=== PATIENT | male | born 1935 | race Caucasian/White ===

== ENCOUNTER → 2024-01-19 09:43 | Outpatient (REF) | payer OTHER, SELFPAY | LOC: RAD 09:43 | PROVIDERS: ATTENDING PHYSICIAN Internal Medicine Gastroenterology; FAMILY PHYSICIAN Family Medicine | DX: R07.89 Other chest pain (principal); R13.19 Other dysphagia | CPT/HCPCS: 74221 ==

== ENCOUNTER → 2024-11-02 11:11 | Outpatient (REF) | payer MEDICARE, SELFPAY | LOC: HWRAD 11:11 | PROVIDERS: ATTENDING PHYSICIAN Family Medicine | DX: R05.3 Chronic cough (principal); Z87.891 Personal history of nicotine dependence | CPT/HCPCS: 71046 ==

== ENCOUNTER → 2024-11-08 16:22 | Outpatient (REF) | payer MEDICARE, SELFPAY | LOC: RAD 16:22 | PROVIDERS: ATTENDING PHYSICIAN Family Medicine | DX: R05.3 Chronic cough (principal); Z87.891 Personal history of nicotine dependence | CPT/HCPCS: 71260; Q9967 ==

== ENCOUNTER → 2025-05-08 15:16 | Outpatient (REF) | payer MEDICARE, SELFPAY | LOC: RAD 15:16 | PROVIDERS: ATTENDING PHYSICIAN Family Medicine | DX: J44.9 Chronic obstructive pulmonary disease, unspecified (principal); C61 Malignant neoplasm of prostate; J18.0 Bronchopneumonia, unspecified organism; C91.10 Chronic lymphocytic leukemia of B-cell type not having achieved remission | CPT/HCPCS: 71046 ==

== ENCOUNTER 2025-05-26 07:57 | Day surgery (SDC) | payer MEDICARE, SELFPAY ==
[2025-05-26] VITALS (24 sets, daily range): BP systolic 159–213; BP diastolic 58–97; BMI 31.4
[2025-05-26 08:26] LABS: Hematocrit 36.7 % (39.0-52.0); Hemoglobin 12.2 g/dL (13.0-18.0); Mean Corp Hgb Conc. 33.2 g/dL (33.0-37.0); Mean Corpuscular Volume 97.3 fL (80.0-94.0); Platelet Count 111 10^3/uL (130-400); Red Cell Dist. Width 14.6 % (11.5-14.5)
[2025-05-26 08:29] LABS: Blood Urea Nitrogen 26 mg/dl (9-20); Calcium 9.3 mg/dl (8.4-10.2); Carbon Dioxide 26 mmol/L (22-30); Chloride 108 mmol/L (98-107); Glucose 106 mg/dl (70-99); Potassium 4.3 mmol/L (3.5-5.1); Sodium 142 mmol/L (135-145); eGFR 52.51
--- NOTE | 2025-05-26 12:19 | ITS.CL.PACE ---
[employer] - Pacemaker Implant
Pacemaker Implant
Procedure Report:
Date of Procedure: May 26, 2025
Patient : 1935
Procedure: Pacemaker Implantation.
Indication: Intermittent AV block
Implants:
Pulse Generator: Medtronic; Model# W1 DR 01]; SN: [id number]
RA Lead: Medtronic; Model# 4574; SN: [id number]
RV Lead: Medtronic; Model# 4074; SN: [id number]
Technique: A time out was performed. The procedure site was identified. The patient was anesthetized by the anesthesia service. Preoperative sedation was administered. The patient was prepped and draped in the usual fashion. Local anesthetic was
applied to the left prepectoral subcutaneous tissue. A 3 inch incision was made 2.5 inches below the left clavicle. A subcutaneous pocket was created with blunt and sharp dissection and hemostasis controlled with Bovie cautery. The left axillary
vein was accessed within the pocket without difficulty. Hemostasis was excellent. The leads were introduced with 7 Fr hemostatic peel away introducer sheaths. The ventricular lead was placed at the right ventricular apex. The atrial lead was placed
in the right atrial appendage. 10 volt pacing did not capture the diaphragm. The leads were secured to the pectoralis muscle and fascia. The leads were appropriately attached to the device. The pocket was irrigated with antibiotic solution. The
device and leads were placed in the pocket. The incision was closed in three layers with absorbable suture. The estimated blood loss was minimal. There were no complications.��
Lead Analysis:
RA lead: P: 2.8 mV; Threshold: 0.4 V @ 0.5��ms; Impedance: 870 ohms.
RV lead: R: 8.0 mV; Threshold: 0.4 V @ 0.5��ms; Impedance: 890 ohms.
Final Programming: AAIR�DDDR 60-130 bpm
�
Conclusion: Uncomplicated Medtronic pacemaker implant.
Recommendation: Routine post pacemaker care.
[2025-05-26] MEDS: NORVASC 5 MG PO (14:50)
--- NOTE | 2025-05-26 16:09 | CM ---
Chart reviewed. Patient is independent of ADLS, lives with his in a 2 STH, 1st level set up, 1 JESUS, 0 DME. Plan is for the patient to return home. CM to follow
[2025-05-26] MEDS: ANCEF 5 IV (17:34)
[2025-05-26] MEDS: DIOVAN 160 MG PO ×2 (17:39→20:35)
--- NOTE | 2025-05-26 17:43 | PTCARENOTE ---
Pt received post procedure with left chest aqucell dry and intact. Left arm immobilizer intact. Denies any pain or discomfort. BP's elevated, medicated with Norvasc as ordered. Assisted oob to the chair for dinner, gait steady.
[2025-05-26] MEDS: APRESOLINE 5 MG IV (23:56)
[2025-05-27] MEDS: ANCEF 5 IV (01:41)
[2025-05-27 01:44] VITALS: BP 169/77
--- NOTE | 2025-05-27 02:24 | PTCARENOTE ---
Pt with BP 190s/80s, V paced o monitor. Pt denies any pain or discomfort. CVPA made aware. Extra dose of Valsartan and later Iv Hydralazine given. BP improved to 169/77 with HR 83
Pressure dressing applied on new pacer side for hematoma and minimal bleeding
[2025-05-27 03:56] VITALS: BP 160/92
[2025-05-27 04:48] LABS: Hematocrit 35.6 % (39.0-52.0); Hemoglobin 12.2 g/dL (13.0-18.0); Mean Corp Hgb Conc. 34.3 g/dL (33.0-37.0); Mean Corpuscular Volume 97.5 fL (80.0-94.0); Platelet Count 129 10^3/uL (130-400); Red Cell Dist. Width 14.3 % (11.5-14.5)
[2025-05-27 05:06] LABS: Blood Urea Nitrogen 26 mg/dl (9-20); Calcium 9.0 mg/dl (8.4-10.2); Carbon Dioxide 21 mmol/L (22-30); Chloride 108 mmol/L (98-107); Estimated Creatinine Clearance 49 ml/min; Glucose 131 mg/dl (70-99); Potassium 4.5 mmol/L (3.5-5.1); Sodium 139 mmol/L (135-145); eGFR > 60.00
[2025-05-27 08:06] VITALS: BP 162/70
[2025-05-27 08:21] VITALS: BMI 30.8
[2025-05-27] MEDS: ZYLOPRIM 300 MG PO (08:45)
[2025-05-27] MEDS: LIPITOR 20 MG PO (08:45)
[2025-05-27] MEDS: NORVASC 5 MG PO (08:45)
[2025-05-27] MEDS: DIOVAN 160 MG PO (08:45)
--- NOTE | 2025-05-27 08:57 | W.PN.CARDCBS ---
Addendum entered and electronically signed by Chauncey Steele DO 05/27/25 09:42:
I saw and examined the patient.
The Telephone Messenger's note was reviewed and I agree with the note.
Comment:
Patient is status post dual-chamber pacemaker with Dr. Wheeler on 05/26/2025
Chest x-ray shows stable lead position with no evidence of pneumothorax
EKG sinus rhythm with ventricular pacing (a sensed, V paced); telemetry similar a sensed V paced
Blood pressure mildly elevated will increase Norvasc to 5 mg twice daily with planned reassessment at home and at incision check
Continue current goal-directed therapy
Stable for DC from CV standpoint
Original Note:
Today's Communication / Plan
-
Status post pacemaker
Increase Norvasc to 5 mg twice daily. Follow blood pressures at home
Ambulate
DC to home today
Impression / Plan
-
Primary Radio Equipment Installer: Dr. Sepulveda
PCP: Dr. Palumbo
Assessment:
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
Hypertension
Hyperlipidemia
CLL
Prostate Cancer
Prediabetes
Former tobacco abuse
Echo 03/16/2023: EF 60%, MAC, mild MR, aortic sclerosis, normal right heart with PAP 36 mmHg, rare second-degree AV block seen
Plan:
-s/p Medtronic PPM placement 05/26/25
-in asensed vpaced rhythm overnight on review of tele
-CXR without PTX
-hgb 12.2
-BPs elevated overnight. currently on valsartan 160mg BID and norvasc 5mg daily. required IV hydralazine PRN x2 overnight. will increase norvasc dose to 5mg BID. patient advised to follow BP trends at home.
-will arrange BP check at time of wound check appointment next week
-discussed activity restrictions post PPM
-ambulate
-plan for DC to home today
[id number]
Progress Note - Radio Equipment Installer
Subjective
Date of Service: May 27, 2025
Reports blood pressure elevated overnight, however feeling fine.
Objective
Labs:
05/27/25 03:57
05/27/25 03:57
Labs
Hgb 12.2 g/dL (13.0-18.0) L 05/27/25 03:57
Hct 35.6 % (39.0-52.0) L 05/27/25 03:57
Plt Count 129 10^3/uL (130-400) L 05/27/25 03:57
Sodium 139 mmol/L (135-145) 05/27/25 03:57
Potassium 4.5 mmol/L (3.5-5.1) 05/27/25 03:57
BUN 26 mg/dl (9-20) H 05/27/25 03:57
Creatinine 1.1 mg/dL (0.7-1.3) 05/27/25 03:57
Glucose 131 mg/dl (70-99) H 05/27/25 03:57
Vital Signs and I&O:
Vital Signs
Temp Pulse Resp BP Pulse Ox
97.7 F 97 18 162/70 94
05/27/25 08:02 05/27/25 08:45 05/27/25 08:02 05/27/25 08:45 05/27/25 08:02
Vital Signs
Temp Pulse Resp BP Pulse Ox
97.7 F 97 18 162/70 94
05/27/25 08:02 05/27/25 08:45 05/27/25 08:02 05/27/25 08:45 05/27/25 08:02
Physical Exam
Physical Exam
GEN: No distress, awake, alert, oriented x3. Immobilizer in place
HEENT: supple, anicteric, mmm, EOMI
LUNGS: CTA bilaterally, no wheezes/rales
CV: Reg, S1/S2, no murmur
ABD: soft, BS+, NT/ND
EXT: No clubbing, cyanosis.trace edema of bilateral lower extremity
NEURO: Gross non-focal
SKIN: Warm, pink, dry. No rash. Left chest Aquacel dressing with mild amount of dried blood noted.
--- NOTE | 2025-05-27 09:07 | W.DS.TRANS ---
DC Summary - Warehouse Analyst
-
Discharge Instructions:
Discharge Diagnosis/Procedures Pacemaker implant
Diet Low Cholesterol,Low Sodium
Driving Restrictions No driving for 1 week
Bathing Restrictions OK to Shower
Instructions:
Stand-Alone Forms: DC Inst - Implanted Device
Changes to Home Medications: Yes
Discharge Medications:
DC Medications w/original date entered in [employer]
allopurinol 300 mg tablet 300 mg PO DAILY 08/27/23
atorvastatin 20 mg tablet 20 mg PO DAILY 08/27/23
garlic 1,000 mg capsule 1,000 mg PO DAILY 08/27/23
tnqbezjd-kg-sdxfn 300 mcg-K 60 mcg-lycop 600 mcg-lutein 300 mcg tablet (Centrum Silver Men) 1 tab PO DAILY 08/27/23
vitamin B complex 1 tab PO DAILY 08/27/23
zinc 50 mg tablet 50 mg PO DAILY 08/27/23
pbxeuvplR56-ueaw oil-omega 3-vit E 50 mg-550 mg-300 mg-30 unit capsule 1 cap PO DAILY 05/26/25
valsartan 160 mg tablet 160 mg PO BID 05/26/25
amlodipine 5 mg tablet (Norvasc) 5 mg PO BID #180 tabs 05/27/25
Home Medication Changes
norvasc is new
Pending Results: No
--- NOTE | 2025-05-27 09:12 | W.DS.TRANS ---
DC Summary - Trolley Operator
-
Discharge Instructions:
Discharge Diagnosis/Procedures Pacemaker implant
Diet Low Cholesterol,Low Sodium
Driving Restrictions No driving for 1 week
Bathing Restrictions OK to Shower
Instructions:
Stand-Alone Forms: DC Inst - Implanted Device
Changes to Home Medications: Yes
Discharge Medications:
DC Medications w/original date entered in [employer]
allopurinol 300 mg tablet 300 mg PO DAILY 08/27/23
atorvastatin 20 mg tablet 20 mg PO DAILY 08/27/23
garlic 1,000 mg capsule 1,000 mg PO DAILY 08/27/23
cmksiulv-nf-uokua 300 mcg-K 60 mcg-lycop 600 mcg-lutein 300 mcg tablet (Centrum Silver Men) 1 tab PO DAILY 08/27/23
vitamin B complex 1 tab PO DAILY 08/27/23
zinc 50 mg tablet 50 mg PO DAILY 08/27/23
[id number]-owdw oil-omega 3-vit E 50 mg-550 mg-300 mg-30 unit capsule 1 cap PO DAILY 05/26/25
valsartan 160 mg tablet 160 mg PO BID 05/26/25
amlodipine 5 mg tablet (Norvasc) 5 mg PO BID #180 tabs 05/27/25
Home Medication Changes
norvasc is new
Pending Results: No
--- NOTE | 2025-05-27 11:46 | PTCARENOTE ---
Pt's binder removed this AM. VSS. Discharged to main lobby, accompanied by and step daughter. Education regarding pacermaker and medications provided
== END 2025-05-27 11:49 | disposition home or self-care (01) ==
LOC: CATH 07:57
PROVIDERS: Nurse Practitioner; ATTENDING PHYSICIAN Internal Medicine Cardiovascular Disease; FAMILY PHYSICIAN Family Medicine; OTHER PHYSICIAN Internal Medicine Cardiovascular Disease
DX: I44.1 Atrioventricular block, second degree (principal); C61 Malignant neoplasm of prostate; C91.10 Chronic lymphocytic leukemia of B-cell type not having achieved remission; E78.5 Hyperlipidemia, unspecified; I08.0 Rheumatic disorders of both mitral and aortic valves; I10 Essential (primary) hypertension; I70.0 Atherosclerosis of aorta; R73.03 Prediabetes; Z87.891 Personal history of nicotine dependence; Z79.899 Other long term (current) drug therapy
CPT/HCPCS: 33208; 71045; 80048; 85027; 93005; C1785; C1898; Q9967

== ENCOUNTER 2025-08-04 18:28 | Observation (INO) | payer MEDICARE, SELFPAY ==
[2025-08-04] VITALS (9 sets, daily range): BP systolic 131–156; BP diastolic 61–110; BMI 31.2
[2025-08-04 12:25] LABS: ALT (SGPT) 23 U/L (0-50); AST (SGOT) 26 U/L (17-59); Albumin 4.9 g/dl (3.5-5.0); Alkaline Phosphatase 96 U/L (38-126); Blood Urea Nitrogen 30 mg/dl (9-20); Calcium 9.4 mg/dl (8.4-10.2); Carbon Dioxide 22 mmol/L (22-30); Chloride 107 mmol/L (98-107); Glucose 114 mg/dl (70-99); Potassium 4.7 mmol/L (3.5-5.1); Sodium 139 mmol/L (135-145); Total Protein 7.3 g/dl (6.3-8.2); eGFR 48.04
[2025-08-04 12:37] LABS: Troponin I 0.026 ng/ml
[2025-08-04 12:45] LABS: Hematocrit 36.3 % (39.0-52.0); Hemoglobin 12.1 g/dL (13.0-18.0); Mean Corp Hgb Conc. 33.3 g/dL (33.0-37.0); Mean Corpuscular Volume 96.0 fL (80.0-94.0); Platelet Count 132 10^3/uL (130-400); Red Cell Dist. Width 14.4 % (11.5-14.5)
--- NOTE | 2025-08-04 13:43 | ED.GENMED ---
History of Present Illness
General
Chief Complaint: Numbness
Time Seen by Provider: 08/04/25 13:29
History of Present Illness
History of Present Illness:
Patient is a 89-year-old male with history of CLL, hypertension, hyperlipidemia presented to the emergency department left upper extremity numbness tingling. Patient states that for the past few days he is not having left upper extremity tingling
only when he sleeps on that side. He wakes up takes his arm out and it goes away. However this morning the tingling lasted for 1 hour. He did not lay on his right side and then still developed the same tingling to the entire left upper extremity.
He denies any weakness chest pain shortness of breath or back pain. He he did call his fiberline supervisor this morning and they interrogated his pacemaker which was unremarkable. He then came to the emergency department given that the pain occurred
again not while sleeping. No known history of degenerative disc disease. He states it follows his entire arm. No history of transient word finding difficulties dysarthria facial droop. At this time patient has no complaints.
Phy Exam
Physical Exam
Physical Exam:
GENERAL: in no acute distress
HEENT: normocephalic, extraocular movements intact, moist oral mucosa
NECK: normal inspection, no cervical spine tenderness, negative Spurling maneuver
RESPIRATORY: no respiratory distress, clear to auscultation bilaterally
CARDIOVASCULAR: regular rate and rhythm, 2+ radial pulses bilaterally
ABDOMEN/: soft, non-distended, non-tender to palpation, no rebound or guarding
EXTREMITIES: non-tender, no edema/swelling
NEUROLOGIC: alert and oriented x 3, cranial nerves II-XII intact, right upper extremity strength 5/5, left upper extremity strength 5/5, right lower extremity strength 5/5, left lower extremity strength 5/5, normal sensation to light touch, normal
bzcaej-yd-zaud and vcbt-ny-izlt, gait not tested formally
SKIN: warm
Course
Orders/Labs/Results
Orders:
Orders
08/04/25 11:58
Electrocardiogram (*1) Urgent
Reason for Study: Other
Other Reason for Exam: left arm numbness
EKG- Treatment ONCE
08/04/25 12:00
Complete Blood Count/With Diff Urgent
Comprehensive Metabolic Panel Urgent
Manual Differential Urgent
Troponin I Urgent
08/04/25 13:42
CT Head & Neck Angio W/wo IV Urgent
Comment:
Reason For Exam: LUE parathesias
Abnormal Lab Results
08/04/25
12:00
WBC 55.7 H* 10^3/uL
(4.8-10.8)
RBC 3.78 L 10^6/uL
(4.70-6.10)
Hgb 12.1 L g/dL
(13.0-18.0)
Hct 36.3 L %
(39.0-52.0)
MCV 96.0 H fL
(80.0-94.0)
MCH 32.0 H pg
(27.0-31.0)
Segmented Neutrophils 7 L %
(42-75)
Lymphocytes (Manual) 90 H %
(20-51)
Monocytes (Manual) 1 L %
(2-9)
BUN 30 H mg/dl
(9-20)
Creatinine 1.4 H mg/dL
(0.7-1.3)
Glucose 114 H mg/dl
(70-99)
08/04/25 12:00
08/04/25 12:00
Vital Signs
Initial and Last Documented VS:
Initial Vital Signs
Temp Pulse Resp BP Pulse Ox
97.8 F 77 19 155/85 99
08/04/25 11:51 08/04/25 11:51 08/04/25 11:51 08/04/25 11:51 08/04/25 11:51
Last Documented Vital Signs
Temp Pulse Resp BP Pulse Ox
97.8 F 69 12 131/110 96
08/04/25 11:51 08/04/25 13:30 08/04/25 13:30 08/04/25 13:15 08/04/25 13:46
MDM/Problems Addressed
Differential Diagnosis Includes:
Patient is a 89-year-old male with history of CLL, hypertension, hyperlipidemia presenting to the emergency department transient left upper extremity numbness tingling. On arrival patient was hypertensive though during my evaluation it did
normalize. Exam shows no neurologic deficits and negative Spurling maneuver. Differential is broad but consists of TIA versus cervical radicular versus atypical ACS. EKG obtained prior to evaluation per my interpretation is a paced rhythm. Blood
work is notable for creatinine of 1.4 with a baseline of 1. Otherwise blood work is similar to prior. Given patient does have risk factors with the tingling not in a radicular distribution patient does need a stroke workup. Will obtain CT head
and angio. He will need admission for further evaluation. Will also obtain CT C-spine to evaluate for any degenerative disc disease.
*Pulse Oximetry
SaO2: 96
Patient hypoxic: no
*Critical Care Note
Total Time (30-74mins, 75-104mins- exclusive of procedures): Not Applicable
Update Note
Update Note:
CT scan with no acute abnormality. 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 Discussed [facility] hospitalist who accepted patient to their service.
ED Attending Note
-
Portions of this chart may have been created with voice recognition software.� Occasional wrong word or��sound alike� substitutions may have occurred due to the inherent limitations of voice recognition software.
Discharge Plan
Departure
Patient Disposition: Admit
Date of Disposition: 08/04/25
Time of Disposition: 16:32
Presentation/result/management discussed w/ accepting MD/DO: Hospitalist
Discharge Problem:
Numbness and tingling of left upper extremity
Prescriptions:
No Action
atorvastatin 20 mg Tablet
20 mg PO DAILY
garlic 1,000 mg Capsule
1,000 mg PO DAILY
vitamin B complex Tablet
1 tab PO DAILY
allopurinol 300 mg Tablet
300 mg PO DAILY
valsartan 160 mg Tablet
160 mg PO BID
Theragen Tablet
1 tab PO DAILY
coQ10 (ubiquinol) 100 mg Capsule
100 mg PO DAILY
amlodipine [Norvasc] 5 mg tablet
5 mg PO BID
Referrals:
Jaycob Palumbo MD [Family Provider, Family Practice]
Interventions
Interventions:
*General Assessment Last Done: 08/04/25 11:54
*Neglect/Abuse Screening Last Done: 08/04/25 11:54
*ED COVID-19 Vaccine History Last Done: 08/04/25 11:54
*ED Influenza Vaccine History Last Done: 08/04/25 11:54
[facility] Fall Risk Assessment Tool Last Done: 08/04/25 13:33
*Risk Screen - Suicide (C-SSRS) Last Done: 08/04/25 11:54
ED- Neurological Assessment Last Done: 08/04/25 13:42
Discharge Date and Time
Print Language: LUX[place]BOURGISH
[2025-08-04 13:47] LABS: Absolute Neutrophils -Man Diff 3.8 10^3/uL (1.4-6.5); Normal RBC Morphology Yes; Platelets Checked Yes; Total Cells Counted 100
[2025-08-04 13:48] LABS: Smudge Cells 3+
--- NOTE | 2025-08-04 17:20 | HPS.HSE ---
Family Physician
-
Family Physician: Jaycob Palumbo
Chief Complaint
-
left upper extremity numbness tingling.
History of Present Illness
89M seen at ER for left upper extremity numbness tingling.
PMHX:CLL, hypertension, hyperlipidemia
- acute onset of Cong numbness tingling for the past few days he is not having left upper extremity tingling only when he sleeps on that side.
- usually wakes up takes his arm out and it goes away.
- However this morning the tingling lasted for 1 hour without laying on the right side and then still developed the same tingling to the entire left upper extremity.
- denies any weakness chest pain shortness of breath or back pain.
- called his dermatology procedural physician this morning and they interrogated his pacemaker which was unremarkable.
- then came to the emergency department given that the pain occurred again not while sleeping.
- No known history of degenerative disc disease.
- No history of transient word finding difficulties dysarthria facial droop.
Currently no complaints.
Medical History
Past Medical History
Past Medical History: Reports Other (pre-DM, CLL, essential HTN, HLD, prostate CA)
Past Surgical History: Reports Other
Social History
Tobacco: Former Smoker
Alcohol: Occasional
Family History
Family History: Not pertinent
Allergies / Home Medications
Allergies reflects when Allergies were last updated in [employer].
Home Medications with original date entered in [employer]
Allergy/Medication List:
Allergies
Allergy/AdvReac Type Severity Reaction Status Date / Time
No Known Allergies Allergy Unverified 08/27/23 20:40
Home Medications
allopurinol 300 mg tablet 300 mg PO DAILY 08/27/23
atorvastatin 20 mg tablet 20 mg PO DAILY 08/27/23
fosinopril 10 mg tablet 10 mg PO BID 08/27/23
garlic 1,000 mg capsule 1,000 mg PO DAILY 08/27/23
rbnmauur-fa-bcoyt 300 mcg-K 60 mcg-lycop 600 mcg-lutein 300 mcg tablet (Centrnandini Silver Men) 1 tab PO DAILY 08/27/23
vitamin B complex 1 tab PO DAILY 08/27/23
vitamin E 268 mg (400 unit) capsule 268 mg PO DAILY 08/27/23
zinc 50 mg tablet 50 mg PO DAILY 08/27/23
Review of Systems
-
Constitutional: Reports No Symptoms
EENT: Reports No Symptoms
Respiratory: Reports No Symptoms
Cardiac: Reports No Symptoms
Abdomen/GI: Reports No Symptoms
: Reports No Symptoms
Musculoskeletal: Reports See HPI
Skin: Reports No Symptoms
Neurological: Reports See HPI and Numbness (intermittent LUE numbness tingling)
Endocrine: Reports No Symptoms
Hematologic/Lymphatic: Reports No Symptoms
Psych: Reports No Symptoms
Physical Exam
Vital Signs
Vital Signs
Temp Pulse Resp BP Pulse Ox
97.8 F 69 12 131/110 96
08/04/25 11:51 08/04/25 13:30 08/04/25 13:30 08/04/25 13:15 08/04/25 13:46
Physical Exam
General: Well Developed, Well Nourished and No Apparent Distress
HEENT: NormoCephalic, Moist mucous membranes and Atraumatic
Respiratory: Clear
Cardiac: S1/S2 and Regular Rhythm; No Murmur or Rub
GI: Soft, Non Tender, Non Distended and Normal Bowel Sounds; No Organomegaly
Rectal: Deferred by Provider
Musculoskeletal: No Clubbing, No Cyanosis and No Edema
Skin: No Rash
Neuro: Nonfocal/grossly intact
Laboratory Results
-
08/04/25 12:00
08/04/25 12:00
Laboratory Results
Total Bilirubin 0.7 mg/dl (0.2-1.3) 08/04/25 12:00
AST 26 U/L (17-59) 08/04/25 12:00
ALT 23 U/L (0-50) 08/04/25 12:00
Alkaline Phosphatase 96 U/L (38-126) 08/04/25 12:00
Troponin I 0.026 ng/ml 08/04/25 12:00
Data Reviewed
-
CT Scan: Report Reviewed by me
Lab Data: Labs Reviewed by me
Old Records: Reviewed
Impression/Plan
-
Vital Signs
Temp Pulse Resp BP Pulse Ox
97.8 F 69 12 131/110 96
08/04/25 11:51 08/04/25 13:30 08/04/25 13:30 08/04/25 13:15 08/04/25 13:46
Selected Entries
08/04/25
11:51 08/04/25
14:00 08/04/25
17:00
Pulse 77
Blood pressure 155/85 142/70 150/75
Labs
05/27/25 08/04/25
03:57 12:00
WBC 66.9 H* 55.7 H*
Hgb 12.2 L 12.1 L
Plt Count 129 L 132
05/27/25 08/04/25
03:57 12:00
BUN 26 H 30 H
Creatinine 1.1 1.4 H
eGFR > 60.00 48.04
Troponin I 0.026
EKG report
- AV dual-paced rhythm
- ABNORMAL ECG
- WHEN COMPARED WITH ECG OF 27-May-2025 04:00,
- VENT. RATE HAS DECREASED by 5 bpm
- Confirmed by JUSTIN MCDONALD MD, LESTER ([id number]) on 08/04/2025 5:31:[address] Head & Neck Angio W/wo IV
- No acute intracranial abnormality.
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
- Moderate stenosis of the short segment of the V4 right vertebral artery.
- Bilateral carotid bifurcation atherosclerosis.
- Stenoses of the bilateral distal common carotid arteries just below the carotid bifurcations (70% stenosis on the right, and 50% stenosis on the left).
- Less than 50% stenosis of the bilateral carotid bulbs, left greater than right.
Last hospitalist admission: 08/28/23 - 08/28/23
PDX:
Resolved chest pain, ruled out acute chest syndrome (ACS), likely related to dyspepsia
Hypertensive urgency, resolved
Chronic Diagnoses:
Chronic lymphocytic leukemia (CLL) with leucocytosis
Bicytopenia with anemia and thrombocytopenia likely related to CLL
Hyperlipidemia
-
ASSESSMENT & PLAN
Pending Rx reconciliation
LUEx subacute transient paraesthesia become persistent without NFND warranted current ER evaluation
Broad DDX: TIA vs. cervical radiculopathy vs. atypical ACS.
- On arrival patient was hypertensive though then normalize.
- no neurologic deficits
- stroke w/u
- start ASA
- c/w FULLER BR[employer] WORKER Statin
- Brain MRI wo contrast
- CT Cx spine
- Neuro consult
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
Moderate stenosis of the short segment of the V4 R Vertebral artery
Bilateral carotid bifurcation atherosclerosis.
Stenoses of the bilateral distal CCA just below the carotid bifurcations (70% stenosis on the right, and 50% stenosis on the left).
Less than 50% stenosis of the bilateral carotid bulbs, left greater than right.
- await Neurologist correlation with UEx subacute transient paraesthesia
HLD
- FULLER BRUSH WORKER statin
Suboptimal control of pHTN
- c/w Valsartan and Amlodipine
Known HX CLL with leucocytosis
DVT Px: SCD
Full code
OBS TLM
--- NOTE | 2025-08-04 20:09 | EDRN ---
attempted to call report- no answer. will try again
[2025-08-04] MEDS: DIOVAN 160 MG PO (21:31)
[2025-08-04] MEDS: NORVASC 5 MG PO (21:31)
[2025-08-04 21:49] LABS: INR 1.05; PT 13.8 Sec (11.4-14.6)
[2025-08-04 21:50] LABS: APTT 30.7 Sec (23.4-35.0)
--- NOTE | 2025-08-04 22:14 | PTCARENOTE ---
Pt arrived to floor via stretcher from the ED. Pt AAOx3, pt independent at baseline, able to walk from stretcher in to room without difficulty. NIH assessed-0 at this time. Pt reported some intermittent numbness/ tingling of UE, denies at this time.
Pt instructed to notify this RN if any symptoms return. HR in the 70's 100% Vpaced on the monitor. POX 96% on RA. lungs clear. + bowel, round obese abd. Pt instructed to call to ambulate to bathroom when needed. Pt reports understanding. palpable
peripheral pulses present. Right AC int capped. Knee high seq now in place. Call espinoza in reach. Will continue to monitor.
[2025-08-05] VITALS (9 sets, daily range): BP systolic 123–165; BP diastolic 50–68; PULSE 70
--- NOTE | 2025-08-05 07:33 | CON.NEURO ---
Addendum entered and electronically signed by Ethan Figueroa MD 08/05/25 13:06:
Given concern for acute infarct within 24 hours of LKW and NIHSS<5 (POINT/CHANCE) and R CCA severe stenosis, loading with clopidogrel 600 mg follwoed by 75 mg to ASA. Duration of DAPT pending MRI and vascular evaluation.
Original Note:
Neuro Assessment/Plan
Assessment
Leoncio Bhagat is a 89 yo M PMH HTN, HLD, pre-diabetes, CLL, AV block s/p PPM, prostate cancer, presenting with acute left arm hemisensory changes. He describes symptoms as severe acute left arm parasthesia and numbness, but intact strength, on
arousal from sleeping. Symptoms lasted about 1 hour then resolved, although were preceded by more minor intermittent sensory changes in the days prior. Neurological exam with persistent mild weakness in left arm (elbow and wrist extension), however
intact sensation. CTAH&N without intracranial high grade vessel occlusion, however high grade (>70%) stenosis of the right common carotid prior to bifurcation.
Differential for presenting symptoms is broad and include transient compressive neuropathy, cervical radiculopathy, or vascular causes. Notably, he reports stuttering symptoms in the days prior with evidence of high grade stenosis in R CCA in a
vascular region potentially attributable to symptoms. While his sensory symptoms have resolved (ie. TIA with ABCD2 score 3), he now has mild persistent weakness in the left arm which is potentially concerning for stroke. Would favor treating
empirically as stroke with ASA/statin pending MRI for further evaluation. Whether evidence of acute stroke on MRI or concerning TIA, it remains concerning that he has symptomatic carotid stenosis, which per NASCET/ECST trials would recommend CEA,
with absolute RR of 16% over 5 years vs medical therapy alone. This should be further discussed with vascular surgery and MRI brain would be useful in further evaluation.
Alternative causes include cervical radiculopathy, although the absence of neck pain, asymmetric reflexes, and no clear dermatomal distribution of sensory symptoms makes this less likely. However, MRI C spine would be helpful to further evaluate.
Plan
- start ASA 325 mg x1, followed by 81 mg daily
- increase atorvastatin 20>80 mg daily
- BP goal normotension
- obtain MRI brain and cervical spine without contrast
- vascular surgery evaluation for concern for symptomatic carotid stenosis and TIA vs stroke
- PT/OT
- obtain Hgb A1c
Consultation
Order
Date of Consultation: 08/05/25
Requesting Provider: Parveen
Reason for Consult: LUE weakness, numbness, parasthesia
Subjective/Objective
Subjective Data
Date of Service: August 05, 2025
Leoncio Bhagat is a 89 yo M PMH HTN, HLD, pre-diabetes, CLL, AV block s/p PPM, prostate cancer, presenting with acute left arm hemisensory changes. About 3 days prior to arrival, he reported developing intermittent numbness and parasthesia in his
left hand in all 5 fingers, but not more proximally on his arm. Symptoms would last about 30 s to 1 min and were possible worsened when sleeping on the side (but not always). Symptoms typically resolved in the AM upon rising from sleep. However on
the day of arrival, his sensory were more severe, involved the entirety of his left arm, and were associated with severe parasthesia waking him up out of sleep at 5AM. Symptoms collectively lasted for about 1 hour.
He denies focal weakness, right arm or leg symptoms, recent injuries/falls, speech changes, alterations in awareness.
He informed his service desk team lead, who interrogated his pacemaker which was normal and recommended ED evaluation.
TNK not administered due to transient/resolved symptoms on arrival and > 4.5 hours from LKW on arrival.
Objective Data
Vital Signs
Temp Pulse Resp BP Pulse Ox
36.7 C 73 16 123/59 95
08/05/25 03:01 08/05/25 03:01 08/05/25 03:01 08/05/25 03:01 08/05/25 03:01
Lab Results
08/04/25 12:00
08/04/25 12:00
PT 13.8 Sec (11.4-14.6) 08/04/25 21:27
INR 1.05 08/04/25 21:27
APTT 30.7 Sec (23.4-35.0) 08/04/25 21:27
Sodium 139 mmol/L (135-145) 08/04/25 12:00
Potassium 4.7 mmol/L (3.5-5.1) 08/04/25 12:00
BUN 30 mg/dl (9-20) H 08/04/25 12:00
Glucose 114 mg/dl (70-99) H 08/04/25 12:00
Calcium 9.4 mg/dl (8.4-10.2) 08/04/25 12:00
LDL 82
Patient Allergies
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
No Known Allergies Allergy (Verified 08/04/25 11:53)
NCHCT, CTAH&N (08/04/25)
No acute intracranial abnormality.
Moderate stenoses of the cavernous segments of the bilateral internal carotid arteries.
Moderate stenosis of the short segment of the V4 right vertebral artery.
Bilateral carotid bifurcation atherosclerosis. Stenoses of the bilateral distal common carotid arteries just below the carotid bifurcations (70% stenosis on the right, and 50% stenosis on the left). Less than 50% stenosis of the bilateral carotid
bulbs, left greater than right.
Extensive aortic calcification, s/p TAVR
CVA Assessment
Onset of Stroke Symptoms
Date of onset of symptoms: 08/04/25
Time of onset of symptoms: 05:00
Date last time pt seen normal: 08/03/25
NIH Stroke Score
Level of Consciousness: 0 - Alert
LOC Questions: 0-Answers both correctly
LOC Commands: 0-Performs both correctly
Best Horizontal Gaze: 0-Normal
Visual Chirinos: 0=Normal, no visual loss
Facial Palsy: 0=Normal, symmetrical
Motor - Right Arm: 0=No drift 10 seconds
Motor - Left Arm: 0=No drift 10 seconds
Motor - Right Le-No drift 5 seconds
Motor - Left Le-No drift 5 seconds
Limb Ataxia: 0-Absent
Sensation: 0-Normal
Best Language: 0-No aphasia
Dysarthria: 0-Normal
Extinction and Inattention: 0-No abnormality
NIH Total Score:: 0
Tenecteplase Contraindications
Reasons for NON-Tx with Thrombolytics ABSOLUTE Exclusions: Time-out of window
IAT Contraindications: Imaging doesn't show large vessel occlusion as cause of stroke
Past History
Past Medical / Surgical History
Past Medical History: Other (CLL, AV block, , HTN, HLD)
Past Surgical History: Other
Review of Systems
-
All other systems: Reviewed and negative
Physical Exam
-
General: Well Developed and Well Nourished
HEENT: Normocephalic and Atraumatic
Extended Neurological Exam
Attention Span & Concentration: Awake and Alert (oriented to person, place, time )
Memory: Unremarkable
Tremor: Hand Tremor Absent
Speech: Quality Unremarkable and Quantity Unremarkable
Cranial Nerve II: Left Eye: Pupillary Reactivity Unremarkable and Visual Chirinos Intact
Cranial Nerve II: Right Eye: Pupillary Reactivity Unremarkable and Visual Chirinos Intact
Cranial Nerves III, IV, : Extraocular Movement: Extraocular Movement Full in all Directions
Cranial Nerve V: Facial Sensation: Intact to Light Touch
Cranial Nerve VII: Facial Symmetry: Normal Facial Symmetry (possible subtle left nasolabial fold flattening )
Cranial Nerve VIII: Hearing: Unremarkable Hearing to Normal Conversational Volume
Cranial Nerves IX, X: Palate Movement: Palate Elevation Symmetric
Cranial Nerve XI: Shoulder Shrug: Unremarkable
Cranial Nerve XII: Tongue Protusion: Midline
Muscle Strength, Overall: Reduced on Left (LUE elbow extension 4+/5, wrist extension 4+/5, tentering machine off bearer 4+/5, intact finger abduction )
Muscle Bulk & Tone: Bulk Unremarkable and Tone Unremarkable
Pronator Drift: No Drift in Upper Extremities and No Drift in Lower Extremities
Deep Tendon Reflexes: Unremarkable Throughout (1+ patellar bilaterally )
Touch Sensation: Double Simultaneous Stimulation Absent and Pin Prick Unremarkable (No sensory deficit in LUE to pinprick throughout )
Coordination: [id number]-[id number]-[id number] Testing Unremarkable
Data Reviewed
-
CT-A: Report Reviewed and Image Reviewed
CT-Perfusion: Report Reviewed and Image Reviewed
CT Head: Report Reviewed and Image Reviewed
Labs: Report Reviewed
Lipid Profile: Report Reviewed
Medications
-
Active Medications
Generic Name Dose Route Start Last Admin
Trade Name Freq PRN Reason Stop Dose Admin
Acetaminophen 650 mg 08/04/25 20:33
Acetaminophen 650 Mg Rectal Suppository RECTAL 09/01/25 20:32
Q4HPRN PRN
GUERIN, mild pain, or temp >100.4F
Acetaminophen 650 mg 08/04/25 20:33
Acetaminophen 325 Mg Tablet PO 09/01/25 20:32
Q4HPRN PRN
GUERIN, mild pain, or temp >100.4F
Allopurinol 300 mg 08/05/25 08:00
Allopurinol 300 Mg Tablet PO 09/02/25 07:59
DAILY ROSA
Amlodipine Besylate 5 mg 08/04/25 20:33 08/04/25 21:31
Amlodipine 5 Mg Tablet PO 09/01/25 20:32 5 mg
BID ROSA Administration
Aspirin 81 mg 08/05/25 08:00
Aspirin 81 Mg Chewable Tablet PO 09/02/25 07:59
DAILY ROSA
Atorvastatin Calcium 20 mg 08/05/25 08:00
Atorvastatin (Lipitor) 20 Mg Tablet PO 09/02/25 07:59
DAILY ROSA
Sodium Chloride 0 flush 08/04/25 21:00
Sodium Chloride 0.9% (Flush) Syringe IV 09/01/25 20:59
PER PROTOCOL ROSA
Valsartan 160 mg 08/04/25 20:33 08/04/25 21:31
Valsartan 160 Mg Tablet PO 09/01/25 20:32 160 mg
BID ROSA Administration
Home Medications
�Medication �Instructions �Recorded
allopurinol 300 mg tablet 300 mg PO DAILY Gout 08/27/23
atorvastatin 20 mg tablet 20 mg PO DAILY High Cholesterol 08/27/23
garlic 1,000 mg capsule 1,000 mg PO DAILY Supplement 08/27/23
vitamin B complex 1 tab PO DAILY 08/27/23
valsartan 160 mg tablet 160 mg PO BID Blood Pressure 05/26/25
amlodipine 5 mg tablet (Norvasc) 5 mg PO BID Blood Pressure 08/04/25
coQ10 (ubiquinol) 100 mg capsule 100 mg PO DAILY Supplement 08/04/25
therapeutic multivitamin 1 tab PO DAILY Supplement 08/04/25
[2025-08-05 07:37] LABS: Urine Character Clear (Clear)
[2025-08-05 07:52] LABS: HDL Cholesterol 25 mg/dl; LDL Cholesterol, Calculated 82 mg/dl; Very Low Density Lipoprotein 49 mg/dl (0-30)
[2025-08-05 07:56] LABS: Urine Red Blood Cell 0-2 /HPF (0-2); Urine Squamous Cell 0-2 /LPF (Few); Urine Urothelial Cell 0-2 /LPF (FEW)
[2025-08-05 07:57] LABS: Urine White Cell 0-2 /HPF (0-5)
--- NOTE | 2025-08-05 09:31 | CM ---
Met with patient at bedside
MARQUEZ form explained; form signed @ [phone]
Pharmacy verified: [facility] @ [address] [place] [address]
Lives w/ ; multilevel home; 1 step to enter; bedroom/bath on first floor; walk-in shower; office on 2nd floor; 16 steps/railing present
PLOF: retired engineer intern; independent with ambulation, stairs, and ADLs; drives; has a Pacemaker
No history of SNF or Home Health utilization
Drove self to hospital; family will transport if driving home is restricted
Plan: PT/OT assessments pending; CM will monitor for needs/services if identified
[2025-08-05] MEDS: DIOVAN PO (09:43)
[2025-08-05] MEDS: PLAVIX 600 MG PO (09:49)
[2025-08-05] MEDS: NSS 1000 IV (09:49)
[2025-08-05] MEDS: NORVASC 5 MG PO ×2 (09:50→19:37)
[2025-08-05] MEDS: ZYLOPRIM 300 MG PO (09:50)
[2025-08-05] MEDS: LIPITOR 80 MG PO (09:50)
[2025-08-05] MEDS: ASPIRIN 325 MG PO (09:50)
--- NOTE | 2025-08-05 10:12 | PTOTSP ---
Speech Therapy Evaluation
Pt seen for bedside swallow assessment. With PO trials, pt appeared to have a functional oropharyngeal swallow function (adequate mastication, ap transfer, clearance, no overt s/sx of aspiration, clear vocal quality, no breath changes). Pt denied
globus sensation and odynophagia.Pt at a relatively low risk of aspiration. Pt on room air but WBC 55.7 (elevated). MD with concerns for possible stroke. Plan for MRI 08/07 for further evaluation.
Recommend:�
1. IDDSI 7 regular solids and IDDSI 0 thin liquids
2. Medication as best tolerated
3. Standard aspiration precautions
4. No concerns with swallow function. F/u pending MRI results. If infarct is observed, a speech-language assessment is recommended.
[2025-08-05 12:15] LABS: Glycohemoglobin (HgbA1c) 5.8 % (4.0-5.9)
--- NOTE | 2025-08-05 14:11 | W.PN.HOSP.TC ---
Today's Communication/Plan
-
Monitor vital signs and see plan
Neurology following
Vascular surgery evaluation
MRI pending
Check urine lites
Bladder scan
BMP
Assessment / Plan
Assessment / Plan
General: Well Developed, Well Nourished and No Apparent Distress
HEENT: NormoCephalic, Moist mucous membranes and Atraumatic
Respiratory: Clear
Cardiac: S1/S2 and Regular Rhythm; No Murmur or Rub
GI: Soft, Non Tender, Non Distended and Normal Bowel Sounds
Musculoskeletal: No Edema
Neuro: Nonfocal/grossly intact
LUEx subacute transient paraesthesia
Rule out TIA/CVA
Will need to also rule out cervical spinal disease
If all the studies are negative then we will consider cardiology evaluation since symptoms started after pacemaker placement
Continue with aspirin, Plavix and statin
Brain MRI pending, cervical spine MRI also ordered by neurology
CT brain without intracranial abnormality. Moderate stenosis of the bilateral internal carotid arteries. Vascular surgery evaluation per neurology
CT also showed moderate bilateral neuroforaminal stenosis from the C3-C7 levels
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
Moderate stenosis of the short segment of the V4 R Vertebral artery
Bilateral carotid bifurcation atherosclerosis.
Stenoses of the bilateral distal CCA just below the carotid bifurcations (70% stenosis on the right, and 50% stenosis on the left).
Less than 50% stenosis of the bilateral carotid bulbs, left greater than right.
Neurology recommended vascular surgery evaluation
Renal insufficiency
Monitor
Bladder scan
HLD
Hypertension
Continue amlodipine
Hold valsartan
Intermittent AV block s/p Medtronic PPM placement 05/26/25
Known HX CLL with leucocytosis
History of prostate cancer
Prediabetes
DVT Px: SCD
Full code
Anticipated Discharge: 24 - 48 hours
Subjective/Interval History
-
Date of Service: August 05, 2025
Denies pain
Objective Data
-
Vital Signs:
Vital Signs
Temp Pulse Resp BP Pulse Ox
97.9 F 63 14 128/50 94
08/05/25 11:00 08/05/25 11:00 08/05/25 11:00 08/05/25 11:00 08/05/25 11:00
I&O
08/04/25 08/05/25 08/06/25
06:59 06:59 06:59
Intake Total 480 / 480
Balance 480 / 480
--- NOTE | 2025-08-05 15:13 | CON.VAS ---
Consultation
Consultation Request
Date/Time Consultation Requested: 08/05/2025
Performing Provider: Florina
Reason for Consultation: R sided stroke
Medical History
-
Chief Complaint: R CCA stenosis
History of Present Illness:
Patient presented with LUE numbness (now resolved) and weakness (now resolved)
Denies history of previous stroke or TIA, specifically amaurosis fugax, slurred speech, facial droop, unilateral weakness or numbness
On statin, no antiplatelet
CTA neck personally reviewed and interpreted by me with mixed plaque in the CCA with 60ish % stenosis. No stenosis of the ICA.
Denies IN, neck surgery or radiation
Past Medical History
Past Medical History: HTN and Hypercholesterolemia
Social History
Tobacco: Former Smoker (smoked for 50 years, quit 25 years ago)
Family History
Family History: Reviewed & Not Pertinent
Allergies / Home Medications
Allergy/AdvReac Type Severity Reaction Status Date / Time
No Known Allergies Allergy Verified 08/04/25 11:53
�Medication �Instructions �Recorded �Confirmed �Type
allopurinol 300 mg tablet 300 mg PO DAILY Gout 08/27/23 08/04/25 History
atorvastatin 20 mg tablet 20 mg PO DAILY High Cholesterol 08/27/23 08/04/25 History
garlic 1,000 mg capsule 1,000 mg PO DAILY Supplement 08/27/23 08/04/25 History
vitamin B complex 1 tab PO DAILY 08/27/23 08/04/25 History
valsartan 160 mg tablet 160 mg PO BID Blood Pressure 05/26/25 08/04/25 History
amlodipine 5 mg tablet (Norvasc) 5 mg PO BID Blood Pressure 08/04/25 08/04/25 History
coQ10 (ubiquinol) 100 mg capsule 100 mg PO DAILY Supplement 08/04/25 08/04/25 History
therapeutic multivitamin 1 tab PO DAILY Supplement 08/04/25 08/04/25 History
Review of Systems
-
History Source: Patient
All other systems: Negative unless noted
Physical Exam
Vital Signs
Temp Pulse Resp BP Pulse Ox
97.9 F 63 14 128/50 94
08/05/25 11:00 08/05/25 11:00 08/05/25 11:00 08/05/25 11:00 08/05/25 11:00
Lab Results
08/04/25 12:00
Troponin I 0.026 ng/ml 08/04/25 12:00
Physical Exam
General: Well Developed
HEENT: Normocephalic and Anicteric
Skin: Warm and Dry
Neuro: AO x 3, No Motor Deficits and Nonfocal/Grossly Intact
Assessment / Plan
-
89M with episode of LUE weakness and numbness, now resolved.
Imaging demonstrates soft plaque of the common carotid artery
There is no extension into the internal carotid artery
All stats from stroke/carotid trials dictate when to intervene for INTERNAL CAROTID ARTERY plaque, and are not necessarily applicable here.
I suspect he may still benefit from intervention if this is deemed a symptomatic lesion.
Will follow up with recommendation following MRI, duplex carotid artery.
DAPT and statin for now.
[2025-08-05 15:15] LABS: Blood Urea Nitrogen 30 mg/dl (9-20); Calcium 9.1 mg/dl (8.4-10.2); Carbon Dioxide 25 mmol/L (22-30); Chloride 104 mmol/L (98-107); Estimated Creatinine Clearance 31 ml/min; Glucose 100 mg/dl (70-99); Potassium 4.7 mmol/L (3.5-5.1); Sodium 135 mmol/L (135-145); eGFR 38.06
[2025-08-06] MEDS: NSS 1000 IV ×2 (02:41→23:02)
[2025-08-06 03:52] VITALS: BP 111/53
--- NOTE | 2025-08-06 05:55 | PTCARENOTE ---
nih 0. left arm without pain/numbness- vpaced- ax3- ambulates without difficulty
[2025-08-06 07:28] LABS: Hematocrit 30.7 % (39.0-52.0); Hemoglobin 10.3 g/dL (13.0-18.0); Mean Corp Hgb Conc. 33.6 g/dL (33.0-37.0); Mean Corpuscular Volume 96.8 fL (80.0-94.0); Platelet Count 106 10^3/uL (130-400); Red Cell Dist. Width 14.1 % (11.5-14.5)
[2025-08-06 07:40] LABS: Blood Urea Nitrogen 28 mg/dl (9-20); Calcium 8.7 mg/dl (8.4-10.2); Carbon Dioxide 20 mmol/L (22-30); Chloride 108 mmol/L (98-107); Estimated Creatinine Clearance 38 ml/min; Glucose 89 mg/dl (70-99); Potassium 4.4 mmol/L (3.5-5.1); Sodium 137 mmol/L (135-145); eGFR 48.04
[2025-08-06 08:13] VITALS: BP 123/52
[2025-08-06 08:22] LABS: Nucleated Red Blood Cells % 0 % (-)
[2025-08-06] MEDS: ZYLOPRIM 300 MG PO (08:22)
[2025-08-06] MEDS: LOW STRENGTH ASPIRIN 81 MG PO (08:22)
[2025-08-06] MEDS: NORVASC 5 MG PO ×2 (08:22→19:22)
[2025-08-06] MEDS: PLAVIX 75 MG PO (08:23)
[2025-08-06] MEDS: LIPITOR 80 MG PO (08:23)
--- NOTE | 2025-08-06 11:16 | W.PN.HOSP.TC ---
Today's Communication/Plan
-
Monitor vitals
See plan
Monitor renal function
Gentle hydration
MRI pending
Carotid ultrasound
Assessment / Plan
Assessment / Plan
General: Well Developed, Well Nourished and No Apparent Distress
HEENT: NormoCephalic, Moist mucous membranes and Atraumatic
Respiratory: Clear
Cardiac: S1/S2 and Regular Rhythm; No Murmur or Rub
GI: Soft, Non Tender, Non Distended and Normal Bowel Sounds
Musculoskeletal: No Edema
Neuro: Nonfocal/grossly intact
LUEx subacute transient paraesthesia
Rule out TIA/CVA
Will need to also rule out cervical spinal disease
If all the studies are negative then we will consider cardiology evaluation since symptoms started after pacemaker placement
Continue with aspirin, Plavix and statin
Brain MRI pending, cervical spine MRI also ordered by neurology
CT brain without intracranial abnormality. Moderate stenosis of the bilateral internal carotid arteries. Vascular surgery following
CT also showed moderate bilateral neuroforaminal stenosis from the C3-C7 levels
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
Moderate stenosis of the short segment of the V4 R Vertebral artery
Bilateral carotid bifurcation atherosclerosis.
Stenoses of the bilateral distal CCA just below the carotid bifurcations (70% stenosis on the right, and 50% stenosis on the left).
Less than 50% stenosis of the bilateral carotid bulbs, left greater than right.
Neurology recommended vascular surgery evaluation
Renal insufficiency
Monitor
Bladder scan
cr improving, 1.4 today
hold arb
cw gentle hydration
HLD
Hypertension
Continue amlodipine
Hold valsartan
Intermittent AV block s/p Medtronic PPM placement 05/26/25
Known HX CLL with leucocytosis
History of prostate cancer
Prediabetes
DVT Px: SCD; lovenox
Full code
Anticipated Discharge: 24 - 48 hours
Subjective/Interval History
-
Date of Service: August 06, 2025
Denies pain
Objective Data
-
Labs:
Laboratory Results
08/06/25
05:47
WBC 43.1 H*
Hgb 10.3 L
Hct 30.7 L
Plt Count 106 L
Sodium 137
Potassium 4.4
Chloride 108 H
Carbon Dioxide 20 L
BUN 28 H
Creatinine 1.4 H
Glucose 89
Calcium 8.7
Vital Signs:
Vital Signs
Temp Pulse Resp BP Pulse Ox
97.9 F 76 18 123/52 94
08/06/25 08:13 08/06/25 08:22 08/06/25 08:13 08/06/25 08:22 08/06/25 08:13
I&O
08/05/25 08/06/25 08/07/25
06:59 06:59 06:59
Intake Total 480 / 480 1979
Balance 480 / 480 1979
[2025-08-06 11:20] VITALS: BP 134/56
[2025-08-06 15:00] VITALS: BP 134/58
[2025-08-06] MEDS: LOVENOX 40 MG SC (17:53)
[2025-08-06 19:54] VITALS: BP 156/61
[2025-08-06 23:09] VITALS: BP 133/52
[2025-08-07 03:36] VITALS: BP 156/66
[2025-08-07 07:00] VITALS: BP 115/58
[2025-08-07] MEDS: LOW STRENGTH ASPIRIN 81 MG PO (08:08)
[2025-08-07] MEDS: LIPITOR 80 MG PO (08:08)
[2025-08-07] MEDS: PLAVIX 75 MG PO (08:08)
[2025-08-07] MEDS: ZYLOPRIM 300 MG PO (08:09)
[2025-08-07] MEDS: NORVASC 5 MG PO (08:09)
--- NOTE | 2025-08-07 09:29 | W.PN.HOSP.TC ---
Addendum entered and electronically signed by Vickie Nunez MD 08/07/25 16:24:
Addendum
MRI result discussed with patient and his family at bedside.
-Carotid ultrasound also reviewed with vascular and neurology. Plan for vascular procedure next week. Discussed with neurology and vascular, okay to go home vascular surgery will schedule appointment next Thursday for procedure, meanwhile,
patient will continue on dual antiplatelet therapy.
Total discharge time spent to see the patient, examine the patient, review data and lab results, discuss discharge plan with patient, family, consultants nursing staff around 69 minutes
Original Note:
Today's Communication/Plan
-
discussed with neurology, follow-up with MRI.
Assessment / Plan
Assessment / Plan
Physical exam:
General: Well Developed, Well Nourished and No Apparent Distress
HEENT: NormoCephalic, Moist mucous membranes and Atraumatic
Respiratory: Clear
Cardiac: S1/S2 and Regular Rhythm; No Murmur or Rub
GI: Soft, Non Tender, Non Distended and Normal Bowel Sounds
Musculoskeletal: No Edema
Neuro: Nonfocal/grossly intact, AAOX#
Psych: calm
LUEx subacute transient paraesthesia
Rule out TIA/CVA
Will need to also rule out cervical spinal disease
If all the studies are negative then we will consider cardiology evaluation since symptoms started after pacemaker placement
Continue with aspirin, Plavix and statin
Brain MRI pending, cervical spine MRI also ordered by neurology
CT brain without intracranial abnormality. Moderate stenosis of the bilateral internal carotid arteries. Vascular surgery following
CT also showed moderate bilateral neuroforaminal stenosis from the C3-C7 levels
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
Moderate stenosis of the short segment of the V4 R Vertebral artery
Bilateral carotid bifurcation atherosclerosis.
Stenoses of the bilateral distal CCA just below the carotid bifurcations (70% stenosis on the right, and 50% stenosis on the left).
Less than 50% stenosis of the bilateral carotid bulbs, left greater than right.
Neurology recommended vascular surgery evaluation
# PRAVEEN
Improved. Creatinine came down
ok to resume home medications.
s/p IVF
HLD
Hypertension
Continue amlodipine
Hold valsartan
Intermittent AV block s/p Medtronic PPM placement 05/26/25
No chest pain. Denies palpitations
Blood pressure stable. Heart rate is stable
Known HX CLL with leucocytosis
Thrombocytopenia, no bleeding or bruises.
Anemia of chronic disease , HGB today is 11.8, was 12-10 in last two days
History of prostate cancer
Prediabetes
DVT Px: SCD; Lovenox
Full code
Total time spent to see the patient, examine the patient, review data and lab results, discuss treatment plan with patient, neurologist, nursing staff around 57 minutes
Anticipated Discharge: Within 24 hours
Subjective/Interval History
-
Date of Service: August 07, 2025
No complaints
Frustrated about MRI ( was told would be Thursday but not yet done)
Objective Data
-
Labs:
Laboratory Results
08/07/25
06:00
WBC Pending
Hgb Pending
Hct Pending
Plt Count Pending
Sodium Pending
Potassium Pending
Chloride Pending
Carbon Dioxide Pending
BUN Pending
Creatinine Pending
Glucose Pending
Calcium Pending
Vital Signs:
Vital Signs
Temp Pulse Resp BP Pulse Ox
97.9 F 65 12 115/58 95
08/07/25 07:00 08/07/25 07:00 08/07/25 07:00 08/07/25 08:09 08/07/25 07:00
I&O
08/06/25 08/07/25 08/08/25
06:59 06:59 06:59
Intake Total 1979
Balance 1979
[2025-08-07 10:17] LABS: Hematocrit 34.7 % (39.0-52.0); Hemoglobin 11.8 g/dL (13.0-18.0); Mean Corp Hgb Conc. 34.0 g/dL (33.0-37.0); Mean Corpuscular Volume 98.0 fL (80.0-94.0); Platelet Count 115 10^3/uL (130-400); Red Cell Dist. Width 14.1 % (11.5-14.5)
[2025-08-07 11:00] VITALS: BP 140/61
[2025-08-07 11:12] LABS: Blood Urea Nitrogen 24 mg/dl (9-20); Calcium 9.6 mg/dl (8.4-10.2); Carbon Dioxide 22 mmol/L (22-30); Chloride 107 mmol/L (98-107); Estimated Creatinine Clearance 44 ml/min; Glucose 94 mg/dl (70-99); Potassium 4.6 mmol/L (3.5-5.1); Sodium 138 mmol/L (135-145); eGFR 57.81
[2025-08-07 11:42] LABS: Nucleated Red Blood Cells % 0 % (-)
--- NOTE | 2025-08-07 12:00 | W.PN.NEURO.1 ---
Addendum entered and electronically signed by Robinson Doherty MD 08/07/25 22:57:
The patient was seen and examined along with the nurse practitioner Chelly Baig, and agree with her assessment and management plan. Given below is my addendum.
Leoncio Bhagat is a 89 yo M PMH HTN, HLD, pre-diabetes, CLL, AV block s/p PPM, prostate cancer, presenting with acute left arm hemisensory changes. He describes symptoms as severe acute left arm paresthesia and numbness, but intact strength, on
arousal from sleeping. Symptoms lasted about 1 hour then resolved.
CTAH&N without intracranial high-grade vessel occlusion, however high-grade 70% stenosis of the right common carotid artery prior to bifurcation.
The carotid ultrasound showed greater than 70% proximal internal carotid artery stenosis on the right side.
MRI of the brain did not show an acute intracranial abnormality.
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
Vascular surgery has seen the patient.
Follow-up with vascular surgery next week for right CEA.
Discussed with the vascular surgeon Dr. Forman.
Continue DAPT. Also continue atorvastatin.
Original Note:
Today's Communication / Plan
-
- ASA 81 mg and Plavix 75 mg daily for 21 days followed by monotherapy with ASA
- goal LDL<70, current LDL 82, increase atorvastatin to 80 mg daily
- BP goal normotension
- obtain MRI brain and cervical spine without contrast
- vascular surgery evaluation for concern for symptomatic carotid stenosis and TIA vs stroke
- PT/OT
- neurochecks and NIHSS per unit guidelines
- stroke education packet
All questions encouraged and answered, plan of care discussed with Dr. Doherty, hospitalist and patient
Neuro Assessment/Plan
Assessment
Leoncio Bhagat is a 89 yo M PMH HTN, HLD, pre-diabetes, CLL, AV block s/p PPM, prostate cancer, presenting with acute left arm hemisensory changes. He describes symptoms as severe acute left arm parasthesia and numbness, but intact strength, on
arousal from sleeping. Symptoms lasted about 1 hour then resolved, although were preceded by more minor intermittent sensory changes in the days prior. Neurological exam with persistent mild weakness in left arm (elbow and wrist extension), however
intact sensation. CTAH&N without intracranial high grade vessel occlusion, however high grade (>70%) stenosis of the right common carotid prior to bifurcation.
Differential for presenting symptoms is broad and include transient compressive neuropathy, cervical radiculopathy, or vascular causes. Notably, he reports stuttering symptoms in the days prior with evidence of high grade stenosis in R CCA in a
vascular region potentially attributable to symptoms. While his sensory symptoms have resolved (ie. TIA with ABCD2 score 3), he now has mild persistent weakness in the left arm which is potentially concerning for stroke. Would favor treating
empirically as stroke with ASA/statin pending MRI for further evaluation. Whether evidence of acute stroke on MRI or concerning TIA, it remains concerning that he has symptomatic carotid stenosis, which per NASCET/ECST trials would recommend CEA,
with absolute RR of 16% over 5 years vs medical therapy alone. This should be further discussed with vascular surgery and MRI brain would be useful in further evaluation.
Alternative causes include cervical radiculopathy, although the absence of neck pain, asymmetric reflexes, and no clear dermatomal distribution of sensory symptoms makes this less likely. However, MRI C spine would be helpful to further evaluate.
Plan
- ASA 81 mg and Plavix 75 mg daily for 21 days followed by monotherapy with ASA
- goal LDL<70, current LDL 82, increase atorvastatin to 80 mg daily
- BP goal normotension
- obtain MRI brain and cervical spine without contrast
- vascular surgery evaluation for concern for symptomatic carotid stenosis and TIA vs stroke
- PT/OT
- neurochecks and NIHSS per unit guidelines
- stroke education packet
Subjective/Objective
Subjective Data
Date of Service: August 07, 2025
No acute overnight events. Currently asymptomatic.
Objective Data
Vital Signs
Temp Pulse Resp BP Pulse Ox
97.5 F 79 12 140/61 99
08/07/25 11:00 08/07/25 11:00 08/07/25 11:00 08/07/25 11:00 08/07/25 11:00
Lab Results
08/07/25 09:39
08/07/25 09:39
PT 13.8 Sec (11.4-14.6) 08/04/25 21:27
INR 1.05 08/04/25 21:27
APTT 30.7 Sec (23.4-35.0) 08/04/25 21:27
Sodium 138 mmol/L (135-145) 08/07/25 09:39
Potassium 4.6 mmol/L (3.5-5.1) 08/07/25 09:39
BUN 24 mg/dl (9-20) H 08/07/25 09:39
Glucose 94 mg/dl (70-99) 08/07/25 09:39
Calcium 9.6 mg/dl (8.4-10.2) 08/07/25 09:39
LDL Cholesterol, Calc 82 mg/dl 08/05/25 06:12
Patient Allergies
No Known Allergies Allergy (Verified 08/04/25 11:53)
Physical Exam
-
General: Well Developed and Well Nourished
HEENT: Normocephalic and Atraumatic
Extended Neurological Exam
Attention Span & Concentration: Awake and Alert (oriented to person, place, time )
Memory: Unremarkable
Tremor: Hand Tremor Absent
Speech: Quality Unremarkable and Quantity Unremarkable
Cranial Nerve II: Left Eye: Pupillary Reactivity Unremarkable and Visual Chirinos Intact
Cranial Nerve II: Right Eye: Pupillary Reactivity Unremarkable and Visual Chirinos Intact
Cranial Nerves III, IV, : Extraocular Movement: Extraocular Movement Full in all Directions
Cranial Nerve V: Facial Sensation: Intact to Light Touch
Cranial Nerve VII: Facial Symmetry: Normal Facial Symmetry (possible subtle left nasolabial fold flattening )
Cranial Nerve VIII: Hearing: Unremarkable Hearing to Normal Conversational Volume
Cranial Nerves IX, X: Palate Movement: Palate Elevation Symmetric
Cranial Nerve XI: Shoulder Shrug: Unremarkable
Cranial Nerve XII: Tongue Protusion: Midline
Muscle Strength, Overall: Reduced on Left
Muscle Bulk & Tone: Bulk Unremarkable and Tone Unremarkable
Pronator Drift: No Drift in Upper Extremities and No Drift in Lower Extremities
Deep Tendon Reflexes: Unremarkable Throughout (1+ patellar bilaterally )
Coordination: Oxkajj-nlis-sokmwm Testing Unremarkable and Eulo-Givd-Qgpg movements intact bilaterally
Data Reviewed
-
CT-A: Report Reviewed and Image Reviewed
MRI Head: Ordered
Carotid Ultrasound: Pending
Medical Test Reports: Report Reviewed
Labs: Report Reviewed
Lipid Profile: Report Reviewed
HgbA1C: Report Reviewed
Reviewed with: Physician and Patient
Old Records: Summarized
[2025-08-07 15:00] VITALS: BP 142/71
--- NOTE | 2025-08-07 16:24 | W.DCSUMMARY ---
Discharge Summary
Discharge Data
Date of Admission: 08/04/25
Date of Discharge: 08/07/25
-
Pending Results: No
Hospital Course
89 years old male presented with left upper extremity numbness. Patient noted that his symptoms were on and off for a few days. He denied weakness. Patient was admitted to the hospital to rule out stroke. He was evaluated by neurologist. Patient
was started on dual antiplatelet therapy and high dose of atorvastatin pending further imaging studies of the brain. Initial CAT scan of the head did not show acute stroke. Patient was noted to have right carotid stenosis. MRI of the head and
cervical area did not show acute finding other than signs of osteoarthritis/joint disease. Ultrasound of the carotid arteries showed right carotid stenosis, greater than 70%. Vascular surgery discussed with neurologist. Neurologist recommended
revascularization as symptoms could be due to vascular origin. Patient was advised to continue dual antiplatelet therapy and high-dose statin pending carotid revascularization that was scheduled within a week by vascular surgery. Patient remained
hemodynamically stable with no symptoms. He was evaluated by physical therapy with no skilled needed. Patient was discharged home in a stable condition.
Discharge Plan
-
Patient Disposition: Home (Routine Discharge)
Discharge Diagnosis/Procedures: You were evaluated by neurologist. Differential for presenting symptoms is broad and may include transient ischemic attack/compressive neuropathy/cervical radiculopathy. You are seen by vascular neurologist.
Recommended to treat carotid artery stenosis. You will be scheduled for procedure within a week.
-You are seen by neurologist. Recommended to take aspirin and Plavix for suspected TIAfor 21 days then to continue with aspirin only. We increased dose of Lipitor for preventative measures.
You will need also to follow-up with your primary within a week - 2 weeks and with neurology in 1 month.
Diet: As tolerated
Referrals:
Jaycob Palumbo MD [Family Provider, Family Practice] - in one to two weeks
Suresh Flores MD [Active, Neurology] - in one month
Davon Forman MD [Active, Vascular Surgery] - in one week
Referral Note: Our vascular surgical physician assistant will call you to arrange upcoming surgery
Prescriptions:
New
atorvastatin 80 mg Tablet
80 mg PO DAILY Qty: 30 0RF
clopidogrel 75 mg Tablet
75 mg PO DAILY Qty: 30 0RF
aspirin 81 mg Tablet,Chewable
81 mg PO DAILY Qty: 30 0RF
Continued
garlic 1,000 mg Capsule
1,000 mg PO DAILY
vitamin B complex Tablet
1 tab PO DAILY
allopurinol 300 mg Tablet
300 mg PO DAILY
valsartan 160 mg Tablet
160 mg PO BID
therapeutic multivitamin Tablet
1 tab PO DAILY
coQ10 (ubiquinol) 100 mg Capsule
100 mg PO DAILY
amlodipine [Norvasc] 5 mg tablet
5 mg PO BID
Discontinued
atorvastatin 20 mg Tablet
20 mg PO DAILY
Discharge Orders:
Discharge Patient (As Directed); Ordered 08/07/25
Ordered By: Vickie Nunez
Discharge Date and Time
Discharge Date/Time: 08/07/25 17:22
Print Language: PERSIAN
--- NOTE | 2025-08-07 16:52 | W.PN.UPDATE ---
Update Note
Progress Note Update
Seen and evaluated. See full consultation by Dr. Heaton from this weekend. This is a follow-up. Patient completed imaging including ultrasound and MRI of the brain. Discussed again with patient symptoms. He had left arm numbness. Seen to occur
twice (he woke up with it. Then it would not resolve for over an hour. No weakness though. Then he went to sleep again, and it occurred again. Patient notes he had had it in the past as well but he seems to note it every time when he is laying
supine. Has not noted it when he is standing or otherwise. Again has noted no weakness, no episodes of speech dysarthria/aphasia, no episodes of amaurosis. No history of TIA/strokes. Cardiovascular risk factor include hyperlipidemia as well as
history of tobacco use but quit 25 years ago. (Smoked pipes but did not inhale them). His exam is nonfocal.
Plan/ Right carotid stenosis, questionable symptomatic.
- Discussed with the patient that based on the fact that he has a significant right carotid stenosis (CT scan as well as confirmed on ultrasound) and no MRI findings to suggest a recent infarct, this could represent asymptomatic right carotid
stenosis (TIA) event. However could also be related to cervical spine issues. His MRI of the cervical spine which I reviewed the report of, does demonstrate some 'bulging disks.' I discussed with patient that if we feel the carotid is caused the
symptoms, then recommendation would be revascularization (discussed with him carotid endarterectomy versus carotid stenting, would favor endart in the symptomatic setting here). Discussed with him extensively the procedure. Discussed anticipated
outcome/recovery. Discussed risk including limited to bleeding, infection, cardiac complication/SD, cranial nerve injury, stroke (1 to 2% and symptomatic setting). Discussed that we could also revascularize the carotid, and symptoms could persist
if they are from a different etiology. But assuming he is symptomatic, it may be safer to revascularize. I discussed that I would talk to the neurology team. I did speak to the attending neurologist just now. They do feel that the carotid is the
more likely source of his symptoms (carotid stenosis). Their recommendation is to proceed with revascularization. Therefore I discussed also with the hospitalist as well plan for revascularization next week. Okay for patient to go home and I will
schedule for outpatient surgery next week. (RIGHT CEA).
== END 2025-08-07 17:22 | disposition home or self-care (01) ==
LOC: 1 ACUTE 18:28
PROVIDERS: Emergency Medicine; Internal Medicine; Nurse Practitioner Family; ADMITTING PHYSICIAN Internal Medicine; ATTENDING PHYSICIAN Internal Medicine; CONSULT PHYSICIAN Student in an Organized Health Care Education/Training Program; EMERGENCY PHYSICIAN Student in an Organized Health Care Education/Training Program; FAMILY PHYSICIAN Family Medicine
DX: R20.0 Anesthesia of skin (principal); M47.812 Spondylosis without myelopathy or radiculopathy, cervical region; I65.23 Occlusion and stenosis of bilateral carotid arteries; C91.10 Chronic lymphocytic leukemia of B-cell type not having achieved remission; N28.9 Disorder of kidney and ureter, unspecified; R73.03 Prediabetes; M48.02 Spinal stenosis, cervical region; I27.20 Pulmonary hypertension, unspecified; I10 Essential (primary) hypertension; E78.00 Pure hypercholesterolemia, unspecified; Z79.899 Other long term (current) drug therapy; Z85.46 Personal history of malignant neoplasm of prostate; Z87.891 Personal history of nicotine dependence; Z95.0 Presence of cardiac pacemaker
CPT/HCPCS: 70496; 70498; 70551; 72141; 80048; 80053; 80061; 81003; 81015; 82570; 83036; 84300; 84484; 85025; 85610; 85652; 85730; 92610; 93005; 93880; 97162; 97166; 99285; G0378; Q9967